=== PATIENT | female | born 1935 | race Caucasian/White ===

== ENCOUNTER 2017-12-27 11:07 | Emergency (ER) | payer MEDICARE, OTHER ==
[~2017-12-27] VITALS: Ht 167.6 cm; Wt 62.6 kg
[~2017-12-27 11:07] MED LIST: ACET325 PO; ALLO100 PO; AMOCLA875 PO; ASPI81CH PO; ASPI81EC; ATOR10; ATOR10 PO; AYGESTIN; Adult Low Dose81 MG PO; Ativan0.5 MG PO; Bactrim Ds Tab1 EACH PO; CALGLU500 PO; CALPHO600 PO; CHOL10002 PO; CLIM.025TP TP; CLOP75 PO; CLORTRIMAZOLE; COLC.6 PO; COLCHICINE0.6 MG PO; CYCL10 PO; DIPASPER; ERGO400 PO; ESTR.05P; EXELON1 EACH TD; FENO160; FENO160 PO; FERR325 PO; FISH1000; FISH1000 PO; FOLI1 PO; Fergon240 M1 PO; GALA4 PO; HYDACE5 PO; HYDCHL25; HYDR1TAB94 PO; JANTOVEN PO; LETR2.5 PO; LEVFLO500 PO; LISI10; LISI20; LISI20 PO; LISI5 PO; LUTEIN; LUTEIN-ZEAXANT1 EACH PO; MEMA10 PO; MULVITA; MULVITA PO; MULVITMINE PO; NIAC500; NIAC500ER PO; Norco 5-325 Ta1 EACH PO; OMEP20ER PO; OMEPRAZOLE; OMEPRAZOLE PO; ONDA4ODT PO; OXYC5 PO; POTPHO; PRAV20 PO; Prilosec Otc20 MG PO; SIME80CH PO; Super B Comple150 MG PO; THIA100 PO; TRIGLIDE PO; TYLENOL PO; VITAMIN B1 PO; WARF2; WARF2 PO; WARF3; ZEAXANTHIN; [UNRECOGNIZED DRUG - OTHER]; [UNRECOGNIZED DRUG - OTHER]; [UNRECOGNIZED DRUG - OTHER]; [UNRECOGNIZED DRUG - OTHER] PO
[2017-12-27 11:27] LABS: BASOPHILS ABSOLUTE AUTO 0.03 K/mm3 (0.00-0.23); BASOPHILS PERCENT AUTO 0 % (0-2); EOSINOPHILS ABSOLUTE AUTO 0.41 K/mm3 (0.00-0.68); EOSINOPHILS PERCENT AUTO 4 % (0-6); Hematocrit 41.2 % (33.0-51.0); Hemoglobin 12.8 g/dL (11.5-16.0); Mean Corpuscular HGB 30.7 pg (26.0-34.0); Mean Corpuscular HGB Conc 31.1 g/dL (31.5-36.5); Mean Corpuscular Volume 99 fL (80-100); Mean Platelet Volume 9.7 fL (9.1-12.4); Platelet Count 176 K/mm3 (150-400); RDW Coefficient Variation 14.6 % (11.7-14.2); RDW Standard Deviation 52.9 fL (35.1-46.3); Red Blood Cell Count 4.17 M/mm3 (3.80-5.20); White Blood Cell Count 10.43 K/mm3 (4.00-11.30)
[2017-12-27 11:31] LABS: IMMATURE GRAN ABSOLUTE AUTO 0.03 K/mm3 (0.00-0.10); IMMATURE GRAN PERCENT AUTO 0 % (0-1); LYMPHOCYTES ABSOLUTE AUTO 4.47 K/mm3 (0.84-5.20); LYMPHOCYTES PERCENT AUTO 43 % (21-46); MONOCYTES ABSOLUTE AUTO 0.73 K/mm3 (0.16-1.47); MONOCYTES PERCENT AUTO 7 % (4-13); NEUTROPHILS ABSOLUTE AUTO 4.76 K/mm3 (1.96-9.15); NEUTROPHILS PERCENT AUTO 46 % (41-73)
[2017-12-27 11:42] LABS: International Normalized Ratio 1.08; Prothrombin Time Results 11.3 Sec (9.7-11.5)
[2017-12-27] MEDS ORDERED: VITB2 PO (11:43)
== END 2017-12-27 13:05 | disposition home or self-care (01) ==
LOC: ER 11:07
PROVIDERS: Emergency Medicine
DX: R51 Headache (principal); I10 Essential (primary) hypertension; Z86.73 Personal history of transient ischemic attack (TIA), and cerebral infarction without residual deficits; Z88.8 Allergy status to other drugs, medicaments and biological substances; Z79.899 Other long term (current) drug therapy; Z79.891 Long term (current) use of opiate analgesic
CPT/HCPCS: 70450; 85025; 85610; 85730; 93005; 93010; 93880; 96374; 96375; 99284; J1170; J2765

== ENCOUNTER 2018-01-22 12:31 | Day surgery (SDC) | payer MEDICARE, OTHER ==
[~2018-01-22] VITALS: Ht 167.6 cm; Wt 62.1 kg
[~2018-01-22 12:31] MED LIST changes: +VITB2 PO
== END 2018-01-22 15:00 | disposition home or self-care (01) ==
LOC: ORSCSDS 12:31
PROVIDERS: Internal Medicine Gastroenterology
PROC: 0DBE8ZX Excision of Large Intestine, Via Natural or Artificial Opening Endoscopic, Diagnostic (ICD-10-PCS; principal; 2018-01-22 14:00)
PROC: 0DBB8ZX Excision of Ileum, Via Natural or Artificial Opening Endoscopic, Diagnostic (ICD-10-PCS; principal; 2018-01-22 14:00)
PROC: 0DBP8ZX Excision of Rectum, Via Natural or Artificial Opening Endoscopic, Diagnostic (ICD-10-PCS; principal; 2018-01-22 14:00)
DX: R19.7 Diarrhea, unspecified (principal); D13.39 Benign neoplasm of other parts of small intestine; K62.1 Rectal polyp; K57.30 Diverticulosis of large intestine without perforation or abscess without bleeding; Z85.038 Personal history of other malignant neoplasm of large intestine; Z86.010 Personal history of colon polyps; Z86.73 Personal history of transient ischemic attack (TIA), and cerebral infarction without residual deficits; I25.10 Atherosclerotic heart disease of native coronary artery without angina pectoris; N25.81 Secondary hyperparathyroidism of renal origin; I12.9 Hypertensive chronic kidney disease with stage 1 through stage 4 chronic kidney disease, or unspecified chronic kidney disease; N18.3 Chronic kidney disease, stage 3 (moderate); Z87.891 Personal history of nicotine dependence; Z79.01 Long term (current) use of anticoagulants; Z79.899 Other long term (current) drug therapy
CPT/HCPCS: 88305

== ENCOUNTER 2019-12-07 16:36 | Emergency (ER) | payer MEDICARE, OTHER ==
[~2019-12-07] VITALS: Ht 167.6 cm; Wt 70.8 kg
[2019-12-07 17:09] LABS: Hematocrit 42.8 % (33.0-51.0); Hemoglobin 13.4 g/dL (11.5-16.0); Mean Corpuscular HGB 32.1 pg (26.0-34.0); Mean Corpuscular HGB Conc 31.3 g/dL (31.5-36.5); Mean Corpuscular Volume 102 fL (80-100); Mean Platelet Volume 9.9 fL (9.1-12.4); Platelet Count 208 K/mm3 (150-400); RDW Coefficient Variation 14.8 % (11.7-14.2); RDW Standard Deviation 56.4 fL (35.1-46.3); Red Blood Cell Count 4.18 M/mm3 (3.80-5.20); White Blood Cell Count 13.63 K/mm3 (4.00-11.30)
[2019-12-07 17:33] LABS: Alanine Aminotransfer (ALT/SGP 31 U/L (12-78); Albumin, Blood 3.7 g/dL (3.4-5.0); Albumin/Globulin Ratio 0.9 (0.8-1.8); Alk Phos 49 U/L (50-136); Anion Gap 7 mmol/L (6-16); Aspartate Aminotrans (AST/SGOT 25 U/L (12-37); Bilirubin, Total 0.4 mg/dL (0.1-1.0); Blood Urea Nitrogen 30 mg/dL (8-24); Bun/Creatinine Ratio 22.2 (12.0-20.0); CO2, Blood 25 mmol/L (21-32); Calcium, Blood 9.6 mg/dL (8.5-10.1); Chloride, Blood 110 mmol/L (98-108); Creatinine, Blood 1.35 mg/dL (0.40-1.00); Globulin, Blood 4.1 g/dL (2.2-4.0); Glomerular Filtration Rate 40 (60-); Glucose, Blood 163 mg/dL (70-99); Potassium, Blood 4.9 mmol/L (3.5-5.5); Sodium, Blood 142 mmol/L (136-145); Total Protein, Blood 7.8 g/dL (6.4-8.2); Troponin I <0.015 ng/mL (0.000-0.040)
[2019-12-07 17:37] LABS: BAND PERCENT MAN 1 % (0-8); BASOPHILS PERCENT MAN 0 % (0-2); EOSINOPHILS PERCENT MAN 0 % (0-6); LYMPHOCYTES ABSOLUTE MAN 6.26 K/mm3 (0.84-5.20); LYMPHOCYTES PERCENT MAN 46 % (21-46); MONOCYTES ABSOLUTE MAN 0.54 K/mm3 (0.16-1.47); MONOCYTES PERCENT MAN 4 % (4-13); NEUTROPHILS ABSOLUTE MAN 6.81 K/mm3 (1.96-9.15); SEG NEUTROPHILS PERCENT MAN 49 % (41-73); TOTAL CELLS COUNTED 100
[2019-12-07] MEDS ORDERED: FOSAMAX70 MG PO (18:42)
--- NOTE | 2019-12-07 19:18 | NUR ---
PT GAVE PERMISSION FOR THIS STUDENT NURSE TO GIVE CARE
[2019-12-07] MEDS ORDERED: HYDR1TAB94 PO (19:49)
== END 2019-12-07 20:07 | disposition home or self-care (01) ==
LOC: ER 16:36
PROVIDERS: Physician Assistant
DX: M54.12 Radiculopathy, cervical region (principal); I10 Essential (primary) hypertension; E78.5 Hyperlipidemia, unspecified; Z88.1 Allergy status to other antibiotic agents; Z88.8 Allergy status to other drugs, medicaments and biological substances; Z79.899 Other long term (current) drug therapy; Z79.01 Long term (current) use of anticoagulants; Z86.73 Personal history of transient ischemic attack (TIA), and cerebral infarction without residual deficits; Z87.891 Personal history of nicotine dependence
CPT/HCPCS: 36415; 71046; 72125; 80053; 84484; 85025; 93005; 93010; 99284-25; A9270-GY

== ENCOUNTER 2020-10-09 22:29 | Inpatient (IN) | payer MEDICARE, OTHER ==
[~2020-10-09] VITALS: Ht 167.6 cm; Wt 71.1 kg
[~2020-10-09 22:29] MED LIST changes: -CHOL10002 PO; +FERROUS GLUCON324 M2 PO; +FOSAMAX70 MG PO; -Fergon240 M1 PO; -LUTEIN-ZEAXANT1 EACH PO; +MEMANTINE HCL E14 MG PO; +OCUVITE BLUE L1 EACH PO; -Super B Comple150 MG PO; +VITAMIN D32000 UNI1 PO; +Vitamin B Comple1 EA PO
[2020-10-09 23:39] LABS: Source, Urine Clean Catch
[2020-10-09 23:45] LABS: BASOPHILS ABSOLUTE AUTO 0.01 K/mm3 (0.00-0.23); BASOPHILS PERCENT AUTO 0 % (0-2); EOSINOPHILS ABSOLUTE AUTO 0.01 K/mm3 (0.00-0.68); EOSINOPHILS PERCENT AUTO 0 % (0-6); Hematocrit 40.3 % (33.0-51.0); Hemoglobin 12.5 g/dL (11.5-16.0); IMMATURE GRAN ABSOLUTE AUTO 0.03 K/mm3 (0.00-0.10); IMMATURE GRAN PERCENT AUTO 0 % (0-1); LYMPHOCYTES ABSOLUTE AUTO 3.33 K/mm3 (0.84-5.20); LYMPHOCYTES PERCENT AUTO 36 % (21-46); MONOCYTES ABSOLUTE AUTO 0.76 K/mm3 (0.16-1.47); MONOCYTES PERCENT AUTO 8 % (4-13); Mean Corpuscular Volume 100 fL (80-100); Mean Platelet Volume 10.6 fL (9.1-12.4); NEUTROPHILS PERCENT AUTO 56 % (41-73); Platelet Count 121 K/mm3 (150-400); RDW Coefficient Variation 14.4 % (11.7-14.2); RDW Standard Deviation 52.9 fL (35.1-46.3); Red Blood Cell Count 4.03 M/mm3 (3.80-5.20); White Blood Cell Count 9.34 K/mm3 (4.00-11.30)
[2020-10-09 23:49] LABS: Bilirubin, Urine Neg (Neg); Blood, Urine 4+ (Neg); Glucose Qualitative, Urine Neg (Neg); Ketones, Urine Neg (Neg); Leukocyte Esterase, Urine 1+ (Neg); Nitrite, Urine Neg (Neg); Protein, Urine 2+ (Neg); Urobilinogen, Urine NORM (Normal)
[2020-10-10] LABS: Albumin, Blood 3.7 g/dL (3.4-5.0); Albumin/Globulin Ratio 0.9 (0.8-1.8); Bilirubin, Total 0.3 mg/dL (0.1-1.0); Bun/Creatinine Ratio 20.4 (12.0-20.0); Calcium, Blood 9.5 mg/dL (8.5-10.1); Creatinine, Blood 2.7 mg/dL (0.40-1.00); Globulin, Blood 4.3 g/dL (2.2-4.0); Potassium, Blood 4.7 mmol/L (3.5-5.5)
[2020-10-10 00:03] LABS: Appearance, Urine Clear (Clear); Color, Urine Yellow (P-Yellow)
[2020-10-10 00:04] LABS: Bacteria Few /hpf; Red Blood Cells, Urine 0-2 /hpf (0-2); Squamous Epithelial Cells Mod /hpf (Few)
--- NOTE | 2020-10-10 04:11 | NUR ---
SHIFT SUMMARY PT ER ADMIT THIS SHIFT. COVID POSTIVE COMPLICATED WITH DEHYDRATION, AND LOSS OF APPETITE. PT HAS DONE WELL SINCE ARRIVING TO THE FLOOR SATS ARE WNL ON RA. LUNGS ARE DIMINISHED BUT WITHOUT WHEEZES OR CRACKLES. NON PRODUCTIVE COUGH. PT FEBRILE. NON PHARM INTERVENTIONS IMPLICATED WITH SOME IMPROVEMENT IN TEMPERATURE. PROVIDER BEING NOTIFIED OF PT TEMPERATURE AND WILL GET TYLENOL ORDERED. ADMISSION HX COMPLETED USING MEDICAL RECORDS. MED REC STILL NEEDS TO BE COMPLETED AT THIS TIME. PT HAS AMBULATED WELL TO [facility] WITH 1 PA. PT A/OX1, BUT PLESANT WITH CARE. IV FLUIDS INFUSING ORDERED. BED IN LOWEST POSITION, CALL LIGHT WITHIN REACH.
[2020-10-10 06:02] LABS: BASOPHILS ABSOLUTE AUTO 0.01 K/mm3 (0.00-0.23); BASOPHILS PERCENT AUTO 0 % (0-2); EOSINOPHILS PERCENT AUTO 0 % (0-6); Hematocrit 36.5 % (33.0-51.0); Hemoglobin 11.6 g/dL (11.5-16.0); IMMATURE GRAN ABSOLUTE AUTO 0.02 K/mm3 (0.00-0.10); IMMATURE GRAN PERCENT AUTO 0 % (0-1); LYMPHOCYTES ABSOLUTE AUTO 2.52 K/mm3 (0.84-5.20); LYMPHOCYTES PERCENT AUTO 31 % (21-46); MONOCYTES ABSOLUTE AUTO 0.46 K/mm3 (0.16-1.47); MONOCYTES PERCENT AUTO 6 % (4-13); Mean Corpuscular HGB 31.3 pg (26.0-34.0); Mean Corpuscular HGB Conc 31.8 g/dL (31.5-36.5); Mean Corpuscular Volume 98 fL (80-100); Mean Platelet Volume 10.8 fL (9.1-12.4); NEUTROPHILS ABSOLUTE AUTO 5.02 K/mm3 (1.96-9.15); NEUTROPHILS PERCENT AUTO 63 % (41-73); Platelet Count 109 K/mm3 (150-400); RDW Coefficient Variation 14.4 % (11.7-14.2); RDW Standard Deviation 52.7 fL (35.1-46.3); Red Blood Cell Count 3.71 M/mm3 (3.80-5.20); White Blood Cell Count 8.03 K/mm3 (4.00-11.30)
[2020-10-10 06:42] LABS: Albumin, Blood 3.2 g/dL (3.4-5.0); Albumin/Globulin Ratio 0.8 (0.8-1.8); Bilirubin, Total 0.3 mg/dL (0.1-1.0); Bun/Creatinine Ratio 21.6 (12.0-20.0); Calcium, Blood 8.7 mg/dL (8.5-10.1); Creatinine, Blood 2.22 mg/dL (0.40-1.00); Globulin, Blood 3.9 g/dL (2.2-4.0); Potassium, Blood 4.7 mmol/L (3.5-5.5); Total Protein, Blood 7.1 g/dL (6.4-8.2)
--- NOTE | 2020-10-10 11:20 | NUR ---
received report from [facility], stated pt is - for covid but /home care assistant is +, will continue to treat as +, alert to self and location but forgets quickly, ie told the arrows on thw l side of call light controlled channel, she forgot, placed immigration guard arrow and reminded her to press it to change channel, she forgot, she is doing better but she forgets, she is very nice but needs assistance frequently, agreed that her would not be a good person to call to take her home since he was a pt in the next room and that florina would be a good person to call, have placed that note signed by both
--- NOTE | 2020-10-10 16:51 | NUR ---
continues to need frequent reminders and assistance, still asking which button changes channels, dispite there being a sticker only on that one place on the call light, had rn call him from 's phone so he could talk to her, she has been frequently asking where he is, told each time that he is next door, last two times assisted to bsc she has not urinated
--- NOTE | 2020-10-10 18:30 | NUR ---
still cooperative but confused, could not rember how to use the bs comode and became very anxious, removed covering of l arm IV to see why it was "hurting" could not see anything, when covered the pain came back but in a different place, not where the IV is, will continue to assess and treat, currently sitting up in bed watching tv and needing to be told how to change channels (: will continue to assess and treat
--- NOTE | 2020-10-11 03:45 | NUR ---
85 year old Female with hx of dementia & current positive covid 19 status continues in special droplet contact isolation. She is on tele monitor with NSR rate in 60s reported. Spouse also 85 also has positive covid 19 status. She is on room air lungs clear no co SOB currently. High fall risk bed alarm on. Has Spouse also hospitalized & he is her caregiver. She is very forgetful needs redirection & a safe environment to prevent falls. PT has perianal excoriation skin care completed with cleanse & barrier cream to promote healing. PT needs assist with toileting wiping pullups changed. Has DTR who would like involved in Dc plan.
--- NOTE | 2020-10-11 16:46 | NUR ---
REPORT GIVEN TO MICHELLE PHILLIPS. PATIENT TRANSFERED TO THE SPECIAL CARE UNIT, ROOM 344 @ 1640. MICHELLE RN TO ASSUME PATIENT CARE AT THIS TIME.
--- NOTE | 2020-10-11 18:18 | NUR ---
PT ARRIVED TO ROOM 344 AT 1640, SETTLED INTO ROOM, BED ALARM ARMED, CALL SCHMITZ IN REACH, CAMERA MONITORING ACTIVATED. PT IS IMPULSIVE, HAS SET OFF BED ALARM A COUPLE OF TIMES SINCE ARRIVAL. NO ACUTE CHANGES NOTED, WILL CONTINUE TO MONITOR AND REPORT TO ONCOMING RN
--- NOTE | 2020-10-11 19:00 | NUR ---
ASSUMED CARE RECEIVED REPORT FROM JACQUELINE MARTINEZ. ASSUMED CARE OF PT. PT ATTEMPTING TO EXIT BED, ADAMANT THAT SHE NEEDS TO GET UP TO PEE. MATOS CATHETER IN PLACE, PATENT AND DRAINING YELLOW URINE. NO APPARENT DISTRESS NOTED AT THIS TIME. CALL LIGHT, POSSESSIONS IN REACH, BED IN LOW POSITION WITH ALARMS ON. WILL CONTINUE TO MONITOR.
--- NOTE | 2020-10-11 21:00 | NUR ---
THIS RN IN PT ROOM, PT O2 SAT 88% ON RA. O2 APPLIED AT 6L INITIALLY, THEN 10L, VS OBTAINED, VEWS SCORE OF 6. RT CALLED, AT BEDSIDE EVALUATING PT. SOIL SORT WORKER AT BEDSIDE. PT ACTIVELY ATTEMPTING TO EXIT BED, RESTLESS AND TACHYPNEIC. SOIL SORT WORKER SPEAKING TO MD REGARDING PT'S CONDITION, ORDERS RECEIVED, PT PLACED ON HIGH FLOW NC, NEBULIZER TX GIVEN PER RT. O2 SATS STABILIZING AT 93% ON 6L. NOMI VEST IN PLACE. PT APPEARS MORE COMFORTABLE. CALL LIGHT, POSSESSIONS IN REACH, BED IN LOW POSITION WITH ALARMS ON. WILL CONTINUE TO MONITOR PT CONDITION.
--- NOTE | 2020-10-12 04:05 | NUR ---
SHIFT SUMMARY PT ASLEEP AT THIS TIME, NO S/S ACUTE DISTRESS NOTED. WAS MONITORED EVERY 1-2 HOURS WITH NEEDS MET. VS REVIEWED, O2 SATS STABLE ON 6L/NC, PT APPEARS COMFORTABLE, RESPS EVEN AND UNLABORED. NOMI VEST REMAINS IN PLACE. NO TELE EVENTS REPORTED T/O NIGHT. PT DENIES NEEDS. CALL LIGHT, POSSESSIONS IN REACH, BED IN LOW POSITION WITH ALARMS ON. WCTM, REPORT OFF TO ONCOMING RN.
[2020-10-12 08:47] LABS: BASOPHILS ABSOLUTE AUTO 0.02 K/mm3 (0.00-0.23); BASOPHILS PERCENT AUTO 0 % (0-2); EOSINOPHILS PERCENT AUTO 0 % (0-6); Hemoglobin 13.6 g/dL (11.5-16.0); IMMATURE GRAN ABSOLUTE AUTO 0.06 K/mm3 (0.00-0.10); IMMATURE GRAN PERCENT AUTO 0 % (0-1); LYMPHOCYTES ABSOLUTE AUTO 4.28 K/mm3 (0.84-5.20); LYMPHOCYTES PERCENT AUTO 29 % (21-46); MONOCYTES ABSOLUTE AUTO 0.89 K/mm3 (0.16-1.47); MONOCYTES PERCENT AUTO 6 % (4-13); Mean Corpuscular HGB 31.6 pg (26.0-34.0); Mean Corpuscular HGB Conc 32.4 g/dL (31.5-36.5); Mean Corpuscular Volume 97 fL (80-100); Mean Platelet Volume 11.2 fL (9.1-12.4); NEUTROPHILS ABSOLUTE AUTO 9.43 K/mm3 (1.96-9.15); NEUTROPHILS PERCENT AUTO 64 % (41-73); Platelet Count 143 K/mm3 (150-400); RDW Coefficient Variation 14.4 % (11.7-14.2); RDW Standard Deviation 51.9 fL (35.1-46.3); Red Blood Cell Count 4.31 M/mm3 (3.80-5.20); White Blood Cell Count 14.68 K/mm3 (4.00-11.30)
[2020-10-12 09:09] LABS: Bun/Creatinine Ratio 26.8 (12.0-20.0); Creatinine, Blood 2.13 mg/dL (0.40-1.00); Potassium, Blood 4.8 mmol/L (3.5-5.5)
--- NOTE | 2020-10-12 18:08 | NUR ---
SHIFT SUMMARY PT OUT OF RESTRAINTS AND DOING WELL, ONE ATTEMPT TO GET OOB WHEN SHE WAS SOILED. HAD 3 BM THIS SHIFT, INCONTINENT IN BRIEF. MATOS DRAINING WELL. POOR VISION. WEANED TO 3L OXYGEN FROM 6L AT BEGINNING OF SHIFT. RED AROUND ANUS DUE TO INCONTINENCE. GRANDSON VISITED. BP WAS LOW IN THE MORNING, GOT 500 ML BOLUS, BP NOW STABLE.WCTM
--- NOTE | 2020-10-13 04:19 | NUR ---
SHIFT SUMMARY NO ACUTE CHANGES THIS SHIFT. AT BEGINNING OF SHIFT PT WAS CALLING CONSISTANTLY ASKING FOR HELP CHANGING THE TV CHANNEL. AROUND 2200 WAS ABLE TO SUGGEST TURNING TV OFF SO THAT PT COULD GO TO SLEEP. PT FEEL ASLEEP SHORTLY THERE AFTER. PT REMAINS ON 3L NC, TAKING NC OUT OF HER NOSE HERE AND THERE. PT REPOSITIONS SELF IN BED. PT IS LAYING IN BED WITH EYES CLOSED, EVEN AND UNLABORED RESPIRATIONS. BED IN LOWERED POSITION WITH BED ALARM ON. CALL LIGHT AND PERSONAL ITEMS WITHIN REACH. NO APPARENT NEEDS OR DISTRESS AT THIS TIME, WILL CONTINUE TO MONITOR UNTIL REPORT GIVEN TO DAY RN.
--- NOTE | 2020-10-13 10:19 | NUR ---
ATTEMPTED TO CALL DR HAILE ABOUT PT'S RR, WILL TRY AGAIN SOON
--- NOTE | 2020-10-13 10:25 | NUR ---
SPOKE TO DR HAILE ABOUT PT'S HIGH RR RATE, BUT SATS ARE VITAL ON 3LITERS NC, BUT SHE IS VERY AGITATED SHE IS VERY HOT AND SWEATY, TEMP IS 99.7, ALL OTHER VSS
[2020-10-13 12:09] LABS: ADENOVIRUS F 40/41 Not Detected (Not Detected); ASTROVIRUS Not Detected (Not Detected); C DIFFICILE TOXIN A/B Not Detected (Not Detected); CAMPYLOBACTER Not Detected (Not Detected); CRYPTOSPORIDIUM Not Detected (Not Detected); CYCLOSPORA CAYETANENSIS Not Detected (Not Detected); ENTAMOEBA HISTOLYTICA Not Detected (Not Detected); ENTEROAGGREGATIVE E COLI Not Detected (Not Detected); ENTEROPATHOGENIC E COLI Not Detected (Not Detected); ENTEROTOXIGENIC E COLI Not Detected (Not Detected); GIARDIA LAMBLIA Not Detected (Not Detected); NOROVIRUS GI/GII Not Detected (Not Detected); PLESIOMONAS SHIGELLOIDES Not Detected (Not Detected); ROTAVIRUS A Not Detected (Not Detected); SALMONELLA Not Detected (Not Detected); SAPOVIRUS Not Detected (Not Detected); SHIGA-TOXIN-PRODUCING E COLI Not Detected (Not Detected); SHIGELLA/ENTEROINVASIVE E COLI Not Detected (Not Detected); VIBRIO Not Detected (Not Detected); VIBRIO CHOLERAE Not Detected (Not Detected); YERSINIA ENTEROCOLITICA Not Detected (Not Detected)
--- NOTE | 2020-10-13 18:10 | NUR ---
Assisted dtr with completion of Polst for her mom. DNR with limited interventions has been selected for pt. Physician signed and copies made for family. 2 copies placed in chart. Original home with dtr.
--- NOTE | 2020-10-13 19:10 | NUR ---
SHIFT SUMMARY BALBIR SPIKED A FEVER THIS MORNING OF 101 WHICH IMPROVED WITH TYLENOL. GOT VERY SWEATY AND AGITATED, GOT PRN SEROQUEL. ONE BM THIS SHIFT. GOT OOB TO MEALS, POOR PO APPETITE. ON 3 LITERS MOST OF THE DAY, BUT AROUND 1830 PT WAS MOVING AROUND IN ROOM WITH JIG BOX OPERATOR SBA AND DESATS TO 82% AND VERY HERNANDEZ. GOT BACK TO BED, NOT RECOVERING, INCREASED TO 5L. CURRENTLY RESTING IN BED COMFORTABLY AND HAS RECOVERED, BUT STILL AT 5L AND SATS AT 90%. RT IN SEEING PT RIGHT NOW. DAUGHTER VISITED. MICHOACANO UPDATED AND AT NURSING STATION AWAITING DR HAILE'S SIGNATURE, AND THEN WE WILL CHANGE IN COMPUTER. NIGHT NURSE UPDATED ON THIS. SET OFF BED ALARM TWICE THIS SHIFT, REORIENTED.
--- NOTE | 2020-10-14 04:39 | NUR ---
SHIFT SUMMARY NO ACUTE CHANGES THIS SHIFT. PT ATTEMPTED TO GET OUT OF BED X2. ONCE REDIRECTED PT WENT BACK TO SLEEP. ATTEMPTED TO TITRATE PT DOWN FROM 5L NC, ON 4L NC PT O2 SAT WAS 89%, BACK ON 5L NC O2 SAT 92-93%. PT REMAINS CONFUSED BUT FOLLOWS COMMANDS. PT IS LAYING IN BED WITH EYES CLOSED, EVEN AND UNLABORED RESPIRATIONS. BED IN LOWERED POSITION WITH BED ALARM ON. CALL LIGHT AND PERSONAL ITEMS WITHIN REACH. NO APPARENT NEEDS OR DISTRESS AT THIS TIME, WILL CONTINUE TO MONITOR UNTIL REPORT GIVEN TO DAY RN.
[2020-10-14 15:15] LABS: PCO2 Arterial 26.2 mmHg (35-45); pH Blood Arterial 7.49 (7.35-7.45)
--- NOTE | 2020-10-14 18:26 | NUR ---
SHIFT SUMMARY PATIENT IS CURRENTLY ALERT TO SELF AND FAMILY. SHE IS PRONE AND ON 14 LITERS O2 VIA NC. HER CHEST XRAY READ JUST CAME BACK. FAMILY IS IN THE ROOM. SHE HAS GONE FROM 6 LITERS TO 14 LITERS OVER THE LAST 12 HOURS. SHE IS HAVING A RESPIRATORY RATE OF 44 BREATHS PER MINUTE. HER FAMILY MEMBER IS IN THERE WITH HER CURRENTLY AND AWAITING FURTHER BREATHING TREATMENTS REQUIRED. PATIENT DOES NOT LIKE BEING PRONE BUT DOING SO SHE CAN BREATHE. PATIENT HAS A MATOS IN AND INCONTINENT OF STOOL. SHE AHS NOT HAD A BOWEL MOVEMENT TODAY.
--- NOTE | 2020-10-14 18:49 | NUR ---
VERIFIED VIDEO MONITORING CALLED SCU MONITOR TO VERIFY VIDEO MONITORING
--- NOTE | 2020-10-14 22:02 | NUR ---
VIDEO MONITORING DC'D INFORMED BY CHARGE NURSE THAT VIDEO MONITORING HAS BEEN DC'D FOR THIS PT
--- NOTE | 2020-10-15 03:59 | NUR ---
SHIFT SUMMARY ADMITTED FOR COVID PNEUMONITIS/LUZMARIA. LIMITED CODE: MEDS OK, NO CPR, NO INTUBATION. PLAN MAY BE TO DC TO [facility]. IS CURRENTLY HOSPITALIZED ON THIS FLOOR WITH COVID WELL. SHE IS ON 14 LPM O2. SHE IS CONFUSED AT TIMES AND PULLS OFF HER NASAL CANNULA. I DID ADMINISTER PRN SEROQUEL AT FAMILY'S REQUEST. THE PT DID SLEEP WELL FOLLOWING THIS ADMINISTRATION. FAMILY INFORMED ME THAT THE PT DOES NOT TOLERATE THE PRONE POSITION, BUT PREFERS TO SLEEP ON HER SIDE. METOPROLOL DOSE HELD BP WAS BELOW PARAMETERS. FAMILY PREFERS WE FIRST CALL DAUGHTER JANN TO REPORT ALL CHANGES/CONCERNS.
[2020-10-15 05:33] LABS: PCO2 Arterial 27.2 mmHg (35-45); PO2 Arterial 55.5 mmHg (80-100); pH Blood Arterial 7.46 (7.35-7.45)
[2020-10-15 06:10] LABS: Hematocrit 41.6 % (33.0-51.0); Hemoglobin 13.2 g/dL (11.5-16.0); Mean Corpuscular HGB 31.3 pg (26.0-34.0); Mean Corpuscular HGB Conc 31.7 g/dL (31.5-36.5); Mean Corpuscular Volume 99 fL (80-100); Mean Platelet Volume 11.1 fL (9.1-12.4); Platelet Count 243 K/mm3 (150-400); RDW Coefficient Variation 14.6 % (11.7-14.2); RDW Standard Deviation 52.4 fL (35.1-46.3); Red Blood Cell Count 4.22 M/mm3 (3.80-5.20); White Blood Cell Count 11.55 K/mm3 (4.00-11.30)
[2020-10-15 06:30] LABS: Albumin, Blood 2.7 g/dL (3.4-5.0); Anion Gap 10 mmol/L (6-16); Blood Urea Nitrogen 58 mg/dL (8-24); Bun/Creatinine Ratio 35.8 (12.0-20.0); CO2, Blood 20 mmol/L (21-32); Calcium, Blood 9.1 mg/dL (8.5-10.1); Chloride, Blood 113 mmol/L (98-108); Creatinine, Blood 1.62 mg/dL (0.40-1.00); Glomerular Filtration Rate 32 (60-); Glucose, Blood 174 mg/dL (70-99); Phosphorus, Blood 2.2 mg/dL (2.5-4.9); Potassium, Blood 4.8 mmol/L (3.5-5.5); Sodium, Blood 143 mmol/L (136-145)
--- NOTE | 2020-10-15 09:35 | NUR ---
0915: Received a request from nursing. Pt is requiring increasingly higher levels of O2 and is not wanting to wear her oxygen or make medications. Pt's nurse, Beatrice, states pt's dtr Remedios is requesting comfort care for her mother instead of sending her to the PCU. 09: Spoke with Remedios and she confirms her request to begin comfort care for her mother. She is requesting medications for comfort and she is also requesting that staff not speak with her dad (pt's mauri who is also hospitalized here with DENIZ) about the comfort care until she gets here and has that conversation with him. Beatrice states she is aware of the request to not discuss comfort care with Keegan (pt's spouse) for now. Remedios is on her way to the hospital at this time. 926: Spoke with Dr. Camarillo re: Remedios's request to change plan from transfer to PCU to transitioning to comfort care. Comfort care order set placed with verbal order from Dr. Camarillo. Dr. Camarillo will review pt's currently ordered medications and determine whether or not to continue them. Spoke with Beatrice and updated her on the orders that will be placed for comfort care. Beatrice reports that Keegan's nurse is arranging to have Keegan come and sit with Sofía in her room this morning. PC to remain available for comfort care and supportive visits prn.
--- NOTE | 2020-10-15 18:32 | NUR ---
SHIFT SUMMARY PATIENT IS NOW ON COMFORT CARE. SHE HAS A RESPIRATORY RATE OF 44 PER MINUTE. PATIENT'S DAUGHTER IS IN WITH HER. SHE HAS BEEN GETTING ROXANOL PER EMAR. SHE DENIES ANY CONCERNS. NO LONGER ON CONTINUOUS BIOX ALTHOUGH THE DAUGHTER IS MONITORING HER OXYGEN SATURATION.
--- NOTE | 2020-10-16 03:57 | NUR ---
SHIFT SUMMARY ADMITTED FOR COVID PNEUMONITIS. DNR CODE. COMFORT CARE. MEDICATED FOR PAIN AND INSOMNIA PER EMAR. PT IS CONFUSED, ATTEMPTED TO GET OUT OF BED, REDIRECTED AND MEDICATED FOR INSOMNIA. PT SLEPT SOUNDLY FOLLOWING ADMINISTRATION. NO NEW CONCERNS THIS SHIFT
--- NOTE | 2020-10-16 08:08 | NUR ---
Case conference with nursing re: Sofía this morning. Nursing reports pt has been receiving roxinal, resp rate in 40s at times. Nursing is headed into Sofía's room shortly to do an assessment. No family currently here. PC to remain available.
--- NOTE | 2020-10-16 09:15 | NUR ---
SPEAKING WITH DAUGHTER JANN TO GIVE AN UPDATE. PATIENT IS NOT WEARING HER OXYGEN CONSISTENTLY WITHOUT SOMEONE IN THERE TO ENCOURAGE HER. SHE DOES PULL IT OUT OF HER NOSE. SHE STATES SHE IS FEELING OKAY.
--- NOTE | 2020-10-16 14:30 | NUR ---
Received a call from nursing to assist with symptom management. Nursing reports pt's resp rate continues to be in the 40s and nursing has increased roxinol dosing from 10 to 20 mg Q 1 hr. Medications reviewed. Would recommend that the ativan pt has ordered be given in combination with the roxinol to see is the efficacy of the medications together can provide some relief of the dyspnea. Sofía has not been taking her dexamethasone as she has not been eating. May consider changing the route of this medication to IV or AL so that she can receive this medication to assist with decreasing inflammation. Nursing reports lungs are not wet sounding at this time. If lungs become wet sounding, possibly consider a diuretic. Will monitor for effectiveness of medicating with ativan and roxinol together.
--- NOTE | 2020-10-16 20:20 | NUR ---
PT on comfort measures for covid 19 pneumonia Family at bedside. PT at 1949. Son in law & DTR Remedios present. DTR took personal belongings. They declined Spiritual care & will call with Mortuary. DTR to inform Spouse of passing. drill doctorJACQUELINE franklin. PT was not a organ donar on ID.
== END 2020-10-16 19:49 | DRG 177 ==
LOC: ER 22:29 → MEDS 10-10 01:12
PROVIDERS: Emergency Medicine; Internal Medicine; ADMIT Internal Medicine
PROC: 3E0333Z Introduction of Anti-inflammatory into Peripheral Vein, Percutaneous Approach (ICD-10-PCS; principal; 2020-10-11)
DX: U07.1 COVID-19 (principal); A41.89 Other specified sepsis; J12.89 Other viral pneumonia; J96.01 Acute respiratory failure with hypoxia; N17.9 Acute kidney failure, unspecified; Z51.5 Encounter for palliative care; Z66 Do not resuscitate; E78.5 Hyperlipidemia, unspecified; E86.0 Dehydration; F03.90 Unspecified dementia, unspecified severity, without behavioral disturbance, psychotic disturbance, mood disturbance, and anxiety; G31.84 Mild cognitive impairment of uncertain or unknown etiology; I12.9 Hypertensive chronic kidney disease with stage 1 through stage 4 chronic kidney disease, or unspecified chronic kidney disease; N18.30 Chronic kidney disease, stage 3 unspecified; Z86.73 Personal history of transient ischemic attack (TIA), and cerebral infarction without residual deficits; R19.7 Diarrhea, unspecified; K27.9 Peptic ulcer, site unspecified, unspecified as acute or chronic, without hemorrhage or perforation; Z79.01 Long term (current) use of anticoagulants; Z78.1 Physical restraint status
CPT/HCPCS: 0097U; 36415; 36600; 51702; 71045; 76770; 80048; 80053; 80069; 81001; 82803; 82947; 85025; 85027; 87077; 87086; 87186; 94640; 94760; 94762; 96361; 96365; 96372; 96375; 99285-25; A9270; A9270-GY; G0378; J0696; J1100; J1644; J2060; J7030; U0004